=== PATIENT | male | born 1950 | race Caucasian/White ===

== ENCOUNTER 2020-09-28 19:43 | Emergency (ER) | payer MEDICARE ==
[2020-09-28 20:30] LABS: BASOPHIL 0.3 % (0-2); EOSINOPHIL 0.3 % (0-7); HCT 40.1 % (42.0-52.0); HGB 13.3 g/dl (13.2-18.0); LYMPHOCYTE 14.3 % (15-48); MCH 31.2 pg (25.0-31.0); MCHC 33.2 g/dL (32.0-36.0); MCV 94.1 fL (78.0-100.0); MONOCYTE 8.8 % (0-12); MPV 9.8 fL (6.0-9.5); NRBC 0; PLT 356 K/uL (150-400); RBC 4.26 M/uL (4.70-6.00); WBC 13.6 K/uL (4.0-10.5)
[2020-09-28 20:45] LABS: ALBUMIN 3.9 g/dL (3.4-5.0); BILIRUBIN - TOTAL 0.5 mg/dL (0.2-1.0); CREATININE 2.19 mg/dL (0.67-1.17); GLOBULIN (CALCULATION) 3.5 g/dL; POTASSIUM 4.4 mmol/L (3.5-5.1); TOTAL PROTEIN 7.4 g/dL (6.4-8.2)
[2020-09-28 21:01] LABS: LACTIC ACID 1.3 mmol/L (0.4-1.9)
[2020-09-28 21:38] LABS: BILIRUBIN NEGATIVE (NEGATIVE); BLOOD 3+ Ery/uL (NEGATIVE); CLARITY HAZY (CLEAR); COLOR YELLOW (YELLOW); GLUCOSE (U) 1+ mg/dL (NORMAL); LEUKOCYTES NEGATIVE Leu/uL (NEGATIVE); NITRITE NEGATIVE (NEGATIVE); PROTEIN TRACE (LOW) mg/dL (NEGATIVE); UROBILINOGEN 0.2 mg/dL (0.2-1.0); pH 7.5 (5.0-9.0)
[2020-09-28 21:47] LABS: BACTERIA TRACE; SQUAMOUS EPITHELIAL CELLS RARE; URINARY RBC TNTC
[2020-09-28] MEDS ORDERED: NORCO 5-325 TA1 EACH PO (22:06)
[2020-09-28] MEDS ORDERED: FLOMAX0.4 MG AD (22:06)
== END 2020-09-28 22:27 | disposition home or self-care (01) ==
LOC: FER 19:43
PROVIDERS: Nurse Practitioner Family
DX: N13.2 Hydronephrosis with renal and ureteral calculous obstruction (principal); I12.9 Hypertensive chronic kidney disease with stage 1 through stage 4 chronic kidney disease, or unspecified chronic kidney disease; E11.22 Type 2 diabetes mellitus with diabetic chronic kidney disease; N18.9 Chronic kidney disease, unspecified
CPT/HCPCS: 36415; 80053; 81001; 82150; 83605; 83690; 85025; J2270; J2405; J7030

== ENCOUNTER 2020-12-20 21:14 | Emergency (ER) | payer MEDICARE ==
[~2020-12-20 21:14] MED LIST: FLOMAX0.4 MG AD; NORCO 5-325 TA1 EACH PO
[2020-12-20 22:27] LABS: BASOPHIL 0.6 % (0-2); EOSINOPHIL 2.6 % (0-7); HGB 12.5 g/dl (13.2-18.0); LYMPHOCYTE 20.7 % (15-48); MCH 32.1 pg (25.0-31.0); MCHC 33.8 g/dL (32.0-36.0); MCV 94.9 fL (78.0-100.0); MONOCYTE 9.1 % (0-12); MPV 9.5 fL (6.0-9.5); NEUTROPHIL 66.7 % (41-80); NRBC 0; PLT 354 K/uL (150-400); RDW 13.3 % (11.5-14.0); WBC 9.4 K/uL (4.0-10.5)
[2020-12-20 22:47] LABS: ALBUMIN 3.7 g/dL (3.4-5.0); BILIRUBIN - TOTAL 0.2 mg/dL (0.2-1.0); BUN/CREAT RATIO (CALC) 17.1 RATIO; CREATININE 1.58 mg/dL (0.67-1.17); GLOBULIN (CALCULATION) 3.6 g/dL; POTASSIUM 4.1 mmol/L (3.5-5.1); TOTAL PROTEIN 7.3 g/dL (6.4-8.2)
[2020-12-20 23:50] LABS: BILIRUBIN NEGATIVE (NEGATIVE); BLOOD 3+ Ery/uL (NEGATIVE); CLARITY HAZY (CLEAR); COLOR YELLOW (YELLOW); GLUCOSE (U) 3+ mg/dL (NORMAL); LEUKOCYTES NEGATIVE Leu/uL (NEGATIVE); NITRITE NEGATIVE (NEGATIVE); PROTEIN TRACE (LOW) mg/dL (NEGATIVE); UROBILINOGEN 0.2 mg/dL (0.2-1.0); pH 7.5 (5.0-9.0)
[2020-12-21] LABS: AMORPHOUS URATES CRYSTALS LARGE; BACTERIA 2+; URINARY RBC TNTC
[2020-12-21] MEDS ORDERED: ONDANSETRON ODT4 MG SL (00:17)
[2020-12-21] MEDS ORDERED: CIPRO500 MG PO (00:17)
[2020-12-21] MEDS ORDERED: FLOMAX0.4 MG PO (00:17)
[2020-12-21] MEDS ORDERED: NORCO 5-325 TA1 EACH PO (00:17)
== END 2020-12-21 00:38 | disposition home or self-care (01) ==
LOC: FER 21:14
PROVIDERS: Emergency Medicine Emergency Medical Services
DX: N13.2 Hydronephrosis with renal and ureteral calculous obstruction (principal); E11.9 Type 2 diabetes mellitus without complications; I10 Essential (primary) hypertension; Z79.84 Long term (current) use of oral hypoglycemic drugs; Z87.442 Personal history of urinary calculi
CPT/HCPCS: 36415; 80053; 81001; 84484; 85025; 87088; J1885; J2405; J7030

== ENCOUNTER 2020-12-31 20:05 | Emergency (ER) | payer MEDICARE ==
[~2020-12-31 20:05] MED LIST changes: +CIPRO500 MG PO; +FLOMAX0.4 MG PO; +ONDANSETRON ODT4 MG SL
[2020-12-31 21:46] LABS: BASOPHIL 0.3 % (0-2); HCT 34.1 % (42.0-52.0); HGB 10.9 g/dl (13.2-18.0); LYMPHOCYTE 16.9 % (15-48); MCH 30.7 pg (25.0-31.0); MCV 96.1 fL (78.0-100.0); MONOCYTE 8.5 % (0-12); MPV 9.6 fL (6.0-9.5); NEUTROPHIL 70.9 % (41-80); NRBC 0; PLT 375 K/uL (150-400); RBC 3.55 M/uL (4.70-6.00); RDW 13.3 % (11.5-14.0); WBC 12.4 K/uL (4.0-10.5)
[2020-12-31 21:54] LABS: BILIRUBIN NEGATIVE (NEGATIVE); BLOOD 3+ Ery/uL (NEGATIVE); COLOR YELLOW (YELLOW); GLUCOSE (U) 1+ mg/dL (NORMAL); LEUKOCYTES 1+ Leu/uL (NEGATIVE); NITRITE NEGATIVE (NEGATIVE); PROTEIN 2+ mg/dL (NEGATIVE)
[2020-12-31 21:56] LABS: CLARITY CLOUDY (CLEAR)
[2020-12-31 22:00] LABS: BACTERIA TRACE; URINARY RBC TNTC
[2020-12-31 22:01] LABS: ALBUMIN 3.4 g/dL (3.4-5.0); BILIRUBIN - TOTAL 0.3 mg/dL (0.2-1.0); BUN/CREAT RATIO (CALC) 12.9 RATIO; CREATININE 1.7 mg/dL (0.67-1.17); GLOBULIN (CALCULATION) 3.9 g/dL; POTASSIUM 3.6 mmol/L (3.5-5.1); TOTAL PROTEIN 7.3 g/dL (6.4-8.2)
[2021-01-01] MEDS ORDERED: NORCO 5-325 TA1 EACH PO (01:44)
[2021-01-01] MEDS ORDERED: AUGMENTIN 875-1 EACH PO (01:44)
== END 2021-01-01 02:00 | disposition home or self-care (01) ==
LOC: FER 20:05
PROVIDERS: Emergency Medicine Emergency Medical Services
DX: K57.32 Diverticulitis of large intestine without perforation or abscess without bleeding (principal); E11.638 Type 2 diabetes mellitus with other oral complications; E11.39 Type 2 diabetes mellitus with other diabetic ophthalmic complication; H42 Glaucoma in diseases classified elsewhere; I10 Essential (primary) hypertension; E78.5 Hyperlipidemia, unspecified; Z98.890 Other specified postprocedural states; Z79.899 Other long term (current) drug therapy; Z79.82 Long term (current) use of aspirin; Z79.84 Long term (current) use of oral hypoglycemic drugs
CPT/HCPCS: 36415; 80053; 81001; 85025; J1885; J7030